=== PATIENT | female | born 1950 | race Caucasian/White ===

== ENCOUNTER 2017-02-21 09:04 | Emergency (ER) | payer OTHER ==
[2017-02-21] MEDS ORDERED: IPRATROPIUM/ALBUTEROL 3 ML DEYVIAL IH ONE (09:14)
--- NOTE | 2017-02-21 09:14 | UCPHY ---
H & P Time Seen by Provider: 02/21/17 09:13 Patient Type: New HPI/ROS: 66-year-old female presents complaining of severe cough that started last night. She also complains of nasal congestion cold symptoms fevers and chills. Review of systems As per HPI General positive fever positive chills no weakness HEENT no eye pain no eye discharge. 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 Seasonal allergies Social History: Denies excessive alcohol or drug use Smoking Status: Never smoked Physical Exam: Alert 66-year-old female with coarse cough and oriented nontoxic appearance, no acute distress afebrile Atraumatic normocephalic Extraocular muscles intact, anicteric Nares mild yellowish discharge Oropharynx mild erythema no tonsillar swelling no exudate no uvular deviation, tolerating own secretions Neck supple no lymphadenopathy Lungs clear to auscultation bilaterally Heart regular rate and rhythm Abdomen normoactive bowel sounds soft nontender Extremities no cyanosis clubbing or edema Skin no rash Constitutional: Initial Vital Signs Temperature (C) 36.7 C 02/21/17 09:13 Heart Rate 110 H 02/21/17 09:13 Respiratory Rate 16 02/21/17 09:13 Blood Pressure 115/76 02/21/17 09:13 O2 Sat (%) 93 02/21/17 09:13 O2 Delivery Mode Room Air Allergies/Adverse Reactions: enoxaparin [From Lovenox] Allergy (Severe, Verified 02/21/17 09:16) Anaphylaxis imipramine Allergy (Severe, Verified 02/21/17 09:16) Anaphylaxis chlorhexidine Allergy (Intermediate, Verified 02/21/17 09:16) Rash bellaspas Allergy (Severe, Uncoded 02/21/17 09:16) Anaphylaxis Home Medications: Medication Instructions Recorded AZITHROMYCIN [Z-PACK] 250 mg PO DAILY #6 tab 02/21/17 Acetaminophen with Codeine 1 each PO BID PRN #10 tablet 02/21/17 [Acetaminophen-Cod #4 Tablet] Albuterol 02/21/17 Aspirin 02/21/17 B Complex 02/21/17 Benzonatate [Tessalon Pearles (RX)] 100 mg PO TID PRN #30 cap 02/21/17 Calcium 02/21/17 Clarinex 02/21/17 Fluticasone Nasal 02/21/17 Herbals/Supplements -Info Only 02/21/17 Letrozole 02/21/17 Melatonin 02/21/17 Multivitamin 02/21/17 Omeprazole 02/21/17 Paroxetine Cr 02/21/17 methylPREDNISolone [Medrol Dose 1 each PO AD #1 ea 02/21/17 Bright] Medical Decision Making - Diagnostics Imaging: Chest x-ray ED Course/Re-evaluation: Patient seen and evaluated for coarse cough, fevers chills cold symptoms that began last night Influenza negative Chest x-ray Patient given DuoNeb initially followed by a normal saline neb followed by an albuterol neb. Patient given prednisone 60 mg p. o. in the urgent care Differential diagnosis considered URI, bronchitis with bronchospasm, pneumonia Impression Bronchitis with bronchospastic cough Plan Home with albuterol inhaler, Medrol Dosepak, azithromycin Acetaminophen with codeine for cough suppressant for sleep Linda Mendoza Advise follow up with primary care physician Return if worsening - Data Points Medications Given: Discontinued Medications Albuterol (Proventil Neb) 3 ml IH EDNOW ONE Stop: 02/21/17 10:35 Last Admin: 02/21/17 10:38 Dose: 3 ml Albuterol/Ipratropium (Duoneb) 3 ml IH EDNOW ONE Stop: 02/21/17 09:15 Last Admin: 02/21/17 09:22 Dose: 3 ml Prednisone (Prednisone) 60 mg PO EDNOW ONE Stop: 02/21/17 09:57 Last Admin: 02/21/17 10:07 Dose: 60 mg Departure - Departure Disposition: Home, Routine, Self-Care Clinical Impression: Bronchitis with bronchospasm Condition: Good Instructions: Acute Bronchitis (ED), Bronchospasm (ED) Referrals: NONE *PRIMARY CARE P,. [Primary Care Provider] - As per Instructions Prescriptions: Acetaminophen with Codeine [Acetaminophen-Cod #4 Tablet] 1 each PO BID PRN #10 tablet PRN Reason: Cough, Severe AZITHROMYCIN [Z-PACK] 250 mg PO DAILY #6 tab Benzonatate [Tessalon Pearles (RX)] 100 mg PO TID PRN #30 cap PRN Reason: Cough, Severe methylPREDNISolone [Medrol Dose Bright] 1 each PO AD #1 ea - PQRS PQRS Measurement: Not applicable
[2017-02-21] MEDS ORDERED: predniSONE 20 MG TAB PO ONE (09:56)
[2017-02-21] MEDS ORDERED: ALBUTEROL 3 ML DEYVIAL IH ONE (10:34)
[2017-02-21 10:59] VITALS: BP 121/69; PULSE 117; RESP 18; TEMP 98.4; O2SAT 93
== END 2017-02-21 10:59 | disposition home or self-care (01) ==
LOC: CED 09:04
DX: J20.9 Acute bronchitis, unspecified (principal); Z85.3 Personal history of malignant neoplasm of breast; Z96.653 Presence of artificial knee joint, bilateral; Z86.718 Personal history of other venous thrombosis and embolism
CPT/HCPCS: 71020-PO; 87400-PO; 96372-PO; G0463-PO